=== PATIENT | female | born 1980 | race Caucasian/White ===

== ENCOUNTER 2019-10-08 11:23 | Outpatient (RCR) | payer BC, OTHER ==
[~2019-10-08 11:23] MED LIST: AGM875T PO; CPR250T PO; ETHINYL ESTRADIOL; ETONOGESTREL; LVF500T PO; NUVARING VG; OXYC-12 PO
== END 2020-01-06 | disposition home or self-care (01) ==
LOC: CARD 11:23
PROVIDERS: ATTEND Nurse Practitioner Family
DX: R00.2 Palpitations (principal); I49.1 Atrial premature depolarization
CPT/HCPCS: 93225; 93226

== ENCOUNTER → 2022-10-04 | Outpatient (CLI) | payer OTHER | LOC: CARD 12:32 | PROVIDERS: ATTEND Nurse Practitioner Family | DX: R94.31 Abnormal electrocardiogram [ECG] [EKG] (principal); R07.89 Other chest pain | CPT/HCPCS: 93306 ==